=== PATIENT | male | born 1965 | race Asian ===

== ENCOUNTER 2017-10-17 02:00 | Emergency (ER) | payer OTHER ==
[~2017-10-17] VITALS: Ht 160 cm; Wt 52.3 kg
[2017-10-17] MEDS ORDERED: CARBAMIDE PEROXIDE 6.5% 15 ML OTIC SOLUTION AD ONE (06:30)
[2017-10-17] MEDS ORDERED: AMOXICILLIN TRIHYDRATE 250 MG CAPSULE PO ONE (06:30)
[2017-10-17 06:45] VITALS: BP 123/81
== END 2017-10-17 07:13 | disposition home or self-care (01) ==
LOC: EMS 02:01
DX: H61.21 Impacted cerumen, right ear (principal); H66.91 Otitis media, unspecified, right ear; J02.9 Acute pharyngitis, unspecified; F17.210 Nicotine dependence, cigarettes, uncomplicated
CPT/HCPCS: 69209; 99283; 99406